=== PATIENT | male | born 1995 ===

== ENCOUNTER 2018-08-06 12:05 | Emergency (ER) | payer OTHER ==
[2018-08-06 12:53] VITALS: BP 127/67
--- NOTE | 2018-08-06 13:17 | UC ---
Skin Complaint HPI - History of Current Complaint Chief Complaint: [facility]CSkin Time Seen by Provider: 08/06/18 12:48 Stated Complaint: SKIN COMPLAINT Pain Intensity: 0 - Allergy/Home Medications Allergies/Adverse Reactions: Allergies Allergy/AdvReac Type Severity Reaction Status Date / Time No Known Allergies Allergy Verified 08/06/18 12:46 PMH/Surg Hx/FS Hx/Imm Hx - Surgical History Surgical History: Yes Surgery Procedure, Year, and Place: 2005 abdominal hernia - Social History Alcohol Use: Occasionally Substance Use Type: None Smoking Status (MU): Heavy Every Day Tobacco Smoker - Immunization History Most Recent Tetanus Shot: 2014 Physical Exam Vital Signs: Initial Vital Signs Temp 98.5 F 08/06/18 12:47 Pulse 59 08/06/18 12:47 Resp 12 08/06/18 12:47 BP 127/67 08/06/18 12:47 Pulse Ox 100 08/06/18 12:47 Course/Dx - Course Course Of Treatment: hx obtained, exam performed ,meds reivewed, wound culture obtained, treated for cellulitis - Differential Diagnoses - Skin Complaint Differential Diagnoses: Cellulitis - Diagnoses Provider Diagnosis: Cellulitis of arm, left Discharge - Sign-Out/Discharge Documenting (check all that apply): Patient Departure All imaging exams completed and their final reports reviewed: No Studies - Discharge Plan Condition: Stable Disposition: HOME Prescriptions: Cephalexin CAP* [Keflex CAP*] 500 mg PO TID #21 cap Patient Education Materials: Cellulitis (DC) Referrals: No Primary Care Phys,NOPCP [Primary Care Provider] - Additional Instructions: 1. take the medication as prescribed. 2. Increase fluids 3. keep area clean and dry 4. FOllow up if not improving - Billing Disposition and Condition Condition: STABLE Disposition: Home
== END 2018-08-06 13:26 | disposition home or self-care (01) ==
LOC: UCCORT 12:05
DX: L03.114 Cellulitis of left upper limb (principal); F17.210 Nicotine dependence, cigarettes, uncomplicated
CPT/HCPCS: 87070; 87205; 99202; G0463